=== PATIENT | male | born 2000 | race African-American/Black ===

== ENCOUNTER 2024-12-19 11:38 | Emergency (ER) | payer MEDICAID ==
[~2024-12-19] VITALS: Ht 185.4 cm; Wt 100.0 kg
[2024-12-19 11:41] VITALS: TEMP 37.1; O2SAT 100
[2024-12-19] MEDS: HYDROCODONE/ACETAMINOPHEN 10/325MG TABLET PO ONE (12:38)
[2024-12-19] MEDS: LIDOCAINE HCL 1% 20ML VIAL INL ONE (13:00)
[2024-12-19] MEDS ORDERED: IBUP-1455 MT (14:57)
[2024-12-19] MEDS ORDERED: HYDR-4009 MT (14:57)
[2024-12-19 15:10] VITALS: BP 149/74; PULSE 80; RESP 13; O2SAT 100
== END 2024-12-19 15:11 | disposition home or self-care (01) ==
LOC: ER 11:38
DX: S62.326A Displaced fracture of shaft of fifth metacarpal bone, right hand, initial encounter for closed fracture (principal); X58.XXXA Exposure to other specified factors, initial encounter; Y93.89 Activity, other specified; Y92.89 Other specified places as the place of occurrence of the external cause; Y99.8 Other external cause status
CPT/HCPCS: 99285; 26605; 73110; 73130; 99152; J2003; A6449